=== PATIENT | female | born 1960 | race American Indian/Alaskan Native ===

== ENCOUNTER 2018-10-13 15:13 | Emergency (ER) | payer OTHER, BC ==
[2018-10-13 15:19] VITALS: TEMP 97.9
[2018-10-13] MEDS ORDERED: Sodium Chloride 0.9% 1,000 ML IV STA (15:51)
--- NOTE | 2018-10-13 15:53 | ED PDOC ---
HPI: Abdomen Time Seen by Provider: 10/13/18 15:48 Chief Complaint (Nursing): Abdominal Pain Chief Complaint (Provider): ABDOMINAL PAIN History Per: Patient (58 Y/O FEMALE HERE WITH RUQ/RLQ ABD PAIN X 2 WEEKS INITIALLY WITH VOMITING/DIARRHEA. PATIENT FEELS SYMPTOMS BEGAN AFTER WORKING AT [employer]. ATTRIBUTED SYMPTOMS WITH LIFTING BOXES. HAS HAD MULTIPLE SX IN PAST FOR FIBROIDS/HYSTERECTOMY.) Past Medical History Reviewed: Historical Data, Nursing Documentation, Vital Signs Vital Signs: Last Vital Signs Temp 97.9 F 10/13/18 15:18 Pulse 83 10/13/18 15:18 Resp 18 10/13/18 15:18 BP 192/80 H 10/13/18 15:18 Pulse Ox 100 10/13/18 15:18 - Medical History PMH: HTN - Family History Family History: States: No Known Family Hx - Home Medications Home Medications: Ambulatory Orders Medication Instructions Recorded Famotidine [Pepcid] 20 mg PO BID #10 tab 10/13/18 - Allergies Allergies/Adverse Reactions: Allergies Allergy/AdvReac Type Severity Reaction Status Date / Time No Known Allergies Allergy Verified 10/13/18 15:17 Review of Systems ROS Statement: Except As Marked, All Systems Reviewed And Found Negative Physical Exam - Reviewed Nursing Documentation Reviewed: Yes Vital Signs Reviewed: Yes - Physical Exam Appears: Positive for: Well, Non-toxic, No Acute Distress Head Exam: Positive for: ATRAUMATIC, NORMAL INSPECTION, NORMOCEPHALIC Skin: Positive for: Normal Color, Warm, DRY Eye Exam: Positive for: EOMI, Normal appearance, PERRL ENT: Positive for: Normal ENT Inspection Neck: Positive for: Normal, Painless ROM Cardiovascular/Chest: Positive for: Regular Rate, Rhythm Respiratory: Positive for: CNT, Normal Breath Sounds Gastrointestinal/Abdominal: Positive for: Normal Exam, Soft Back: Positive for: Normal Inspection Extremity: Positive for: Normal ROM Neurologic/Psych: Positive for: Alert, Oriented - Laboratory Results Result Diagrams: 10/13/18 16:09 10/13/18 16:09 - ECG O2 Sat by Pulse Oximetry: 100 - Progress ED Course And Treament: CT ABD/PELVIS: IMPRESSION: No evidence of acute cholecystitis pancreatitis or appendicitis. 3 millimeter nonobstructing calculus at the midpole of the right kidney. Disposition - Clinical Impression Clinical Impression: Abdominal pain in female - Patient ED Disposition Is Patient to be Admitted: No - Disposition Referrals: David Mcdonnell MD [Staff Provider] - Disposition: Routine/Home Disposition Time: 18:53 Condition: FAIR Prescriptions: Famotidine [Pepcid] 20 mg PO BID #10 tab Instructions: Acute Abdomen (Belly Pain) Forms: [facility] ED School/Work Excuse
[2018-10-13 16:31] LABS: BLOOD UREA NITROGEN 18 mg/dl (7-17); CALCIUM 9.4 mg/dL (8.4-10.2); GFR NON-AFRICAN AMERICAN > 60; LIPASE 39 U/L (23-300)
[2018-10-13 16:35] LABS: ALB/GLOB RATIO 1.4 (1.0-2.1); ALBUMIN 4.6 g/dL (3.5-5.0); ALT/SGPT 20 U/L (9-52); AST/SGOT 60 U/L (14-36)
[2018-10-13 16:49] LABS: BASO # 0.1 K/uL (0.0-0.2); BASO % 1.2 % (0.0-2.0); EOS # 0.1 K/uL (0.0-0.7); EOS % 1.9 % (0.0-4.0); LYMPH # 1.5 K/uL (1.0-4.3); LYMPH % 36.5 % (20.0-40.0); MEAN CELL VOLUME 92.5 fl (81.0-99.0); MEAN CORPUSCULAR HEMOGLOBIN 29.2 pg (27.0-31.0); MEAN CORPUSCULAR HGB CONC 31.6 g/dL (33.0-37.0); MEAN PLATELET VOLUME 10.9 fl (7.2-11.7); MONO # 0.3 K/uL (0.0-0.8); MONO % 7.7 % (0.0-10.0); NEUT # 2.2 K/uL (1.8-7.0); NEUT % 52.7 % (50.0-75.0); NRBC % 0.1 % (0.0-0.0); RBC 3.76 Mil/uL (3.80-5.20); RED CELL DISTRIBUTION WIDTH 13.5 % (11.5-14.5); WHITE BLOOD COUNT 4.1 K/uL (4.8-10.8)
[2018-10-13] MEDS ORDERED: Iohexol 300 100 ML IJ ONE (16:57)
[2018-10-13] MEDS ORDERED: Sodium Chloride 0.9% 50 ML IV ONE (16:58)
--- NOTE | 2018-10-13 17:52 | CT ---
Date of service: 10/13/2018 PROCEDURE: CT Abdomen and Pelvis with contrast HISTORY: RUQ/RLQ ABD PAIN COMPARISON: Comparison is made to the previous study dated 11/10/2013 TECHNIQUE: Contrast dose: 90 mL of Omnipaque 300 intravenously. Axial and reformatted coronal and sagittal CT images of the abdomen and pelvis were obtained after IV contrast administration. Radiation dose: Total exam DLP = 510.29 mGy-cm. This CT exam was performed using one or more of the following dose reduction techniques: Automated exposure control, adjustment of the mA and/or kV according to patient size, and/or use of iterative reconstruction technique. FINDINGS: LOWER THORAX: Unremarkable. LIVER: Unremarkable. No gross lesion or ductal dilatation. GALLBLADDER AND BILE DUCTS: Unremarkable. PANCREAS: Unremarkable. No gross lesion or ductal dilatation. SPLEEN: Unremarkable. ADRENALS: Unremarkable. No mass. KIDNEYS AND URETERS: There is 2-3 millimeter nonobstructing calculus at the midpole of the right kidney. The kidneys enhance symmetrically without evidence of hydronephrosis. VASCULATURE: Unremarkable. No aortic aneurysm. No aortic atherosclerotic calcification or mural plaque present. BOWEL: Unremarkable. No obstruction. No gross mural thickening. APPENDIX: No evidence of appendicitis. PERITONEUM: Unremarkable. No free fluid. No free air. LYMPH NODES: Unremarkable. No enlarged lymph nodes. BLADDER: Unremarkable. REPRODUCTIVE: The uterus and adnexa are not visualized. BONES: No acute fracture. OTHER FINDINGS: None. IMPRESSION: No evidence of acute cholecystitis pancreatitis or appendicitis. 3 millimeter nonobstructing calculus at the midpole of the right kidney.
[2018-10-13 18:40] LABS: SQUAMOUS EPITHIAL 1 /hpf (0-5); URINE BACTERIA RARE (<OCC); URINE BILIRUBIN NEGATIVE (NEGATIVE); URINE BLOOD NEGATIVE (NEGATIVE); URINE CLARITY CLEAR (Clear); URINE COLOR STRAW (YELLOW); URINE GLUCOSE (UA) NEG (NEGATIVE); URINE PROTEIN NEGATIVE (NEGATIVE); URINE UROBILINOGEN 0.2-1.0 mg/dL (0.2-1.0)
[2018-10-13 18:42] LABS: URINE LEUKOCYTE ESTERASE NEGATIVE Leu/uL (Negative)
[2018-10-13 19:31] VITALS: BP 172/80; PULSE 82; RESP 16; O2SAT 99
== END 2018-10-13 19:31 | disposition home or self-care (01) ==
LOC: H.ER 15:13
DX: N20.0 Calculus of kidney (principal); I10 Essential (primary) hypertension
CPT/HCPCS: 74177; 80053; 81003; 83690; 85025; 87086; 99283; J7030; Q9967